=== PATIENT | male | born 1940 | race Caucasian/White ===

== ENCOUNTER → 2024-09-16 | Outpatient (CLI) | payer MEDICARE, BC, SELFPAY ==
[2024-09-16 16:59] LABS: Collection Type, Urine Clean Catch
[2024-09-16 17:43] LABS: Basophils % (Auto) 1 % (0-2.5); Eosinophils # (Auto) 0.3 Thou/mm3 (0.0-0.5); Eosinophils % (Auto) 4 % (0-10); Hematocrit 41.9 % (41.0-53.0); Hemoglobin 13.3 g/dL (13.5-16.0); Immature Granulocytes % (Auto) 0 % (0-0); Immature Granulocytes Auto 0.01 Thou/mm3 (0.00-0.00); Lymphocytes # (Auto) 1.8 Thou/mm3 (1.0-4.8); Lymphocytes % (Auto) 25 % (10-50); Mean Corpuscular HGB Conc 31.7 g/dl (31.0-37.0); Mean Corpuscular Hemoglobin 31.1 pg (25.0-35.0); Mean Corpuscular Volume 98 fL (80-100); Monocytes # (Auto) 0.7 Thou/mm3 (0.0-0.8); Monocytes % (Auto) 9 % (0-12); Neutrophils # (Auto) 4.4 Thou/mm3 (1.8-7.7); Neutrophils % (Auto) 61 % (37-80); Nucleated Red Blood Cell % 0 /100 WBC (0); Platelet Count 180 Thou/mm3 (140-440); RDW Standard Deviation 53.2 fL (35.1-43.9); Red Blood Count 4.28 Miln/mm3 (4.50-5.90); White Blood Count 7.2 Thou/mm3 (3.8-10.6)
[2024-09-16 17:49] LABS: Glucose Estimated Average 114 mg/dL (80-131); Hemoglobin A1C 5.6 % Hgb (4.8-6.0)
[2024-09-16 17:53] LABS: T4 (Thyroxine) 11.7 mcg/dL (4.5-10.9); Vitamin D 25 Hydroxy Total 63.6 ng/mL (7.3-40.2)
[2024-09-16 17:55] LABS: Bilirubin,Urine Negative (Negative); Blood,Urine Negative (Negative); Clarity,Urine Clear (Clear/Hazy); Color,Urine Colorless (Lt Yel-Yel); Culture Indicated,Urine Not Indicated; Glucose, Urine Negative (Negative); Ketones,Urine Negative (Negative); Leukocyte Esterase,Urine Positive (Negative); Nitrite,Urine Negative (Negative); Protein,Urine Negative (Neg - Trace); RBC,Urine 1 /hpf (0-3); Specific Gravity,Urine 1.009 (1.001-1.035); Squamous Epithelial Cell,Urine < 1 /hpf (0-5); Urobilinogen,Urine Negative mg/dL (0.0-1.0); WBC,Urine 5 /hpf (0-5)
[2024-09-16 17:56] LABS: Alanine Aminotransferase 57 U/L (10-49); Albumin, Serum 4.5 gm/dL (3.4-4.8); Albumin/Globulin Ratio 2.3 (1.2-2.2); Alkaline Phosphatase 80 U/L (46-116); Anion Gap 6 (7-16); Aspartate Amino Transferase 12 U/L (0-34); BUN/Creatinine Ratio 19 Ratio (12-20); Bilirubin,Total 0.4 mg/dL (0.3-1.2); Blood Urea Nitrogen 19 mg/dL (9-23); Calcium 9.8 mg/dL (8.3-10.6); Calcium (Corrected) 9.8 mg/dL (8.5-10.1); Cardiac Risk Estimate 3.2 RATIO (4.0-6.7); Chloride 101 mMol/L (98-107); Cholesterol 126 mg/dL (132-200); Glucose 131 mg/dL (74-106); HDL Cholesterol 40 mg/dL (40-60); LDL Cholesterol,Calculated 60 mg/dL (0-130); Osmolality,Calculated 285 (275-295); Potassium 4.3 mMol/L (3.4-5.1); Sodium 141 mMol/L (136-145); Thyroid Stimulating Hormone 0.17 uIU/mL (0.55-4.78); Total Protein 6.5 gm/dL (5.7-8.2); Triglycerides 130 mg/dL (30-150); eGFR > 60 See Note
== END | disposition home or self-care (01) ==
LOC: COPL 15:58
PROVIDERS: PCP Registered Nurse; Referring Provider Registered Nurse; Visit Provider Registered Nurse
DX: Z00.00 Encounter for general adult medical examination without abnormal findings (principal); G47.00 Insomnia, unspecified; E03.9 Hypothyroidism, unspecified; E78.2 Mixed hyperlipidemia; R73.03 Prediabetes; N40.1 Benign prostatic hyperplasia with lower urinary tract symptoms
CPT/HCPCS: 36415; 80053; 80061; 81001; 82306; 83036; 84153; 84436; 84443; 85025

== ENCOUNTER → 2025-01-16 | Outpatient (CLI) | payer MEDICARE, BC, SELFPAY ==
[2025-01-16 15:51] LABS: B-Type Natriuretic Peptide < 20 pg/mL (0-100)
[2025-01-16 15:52] LABS: Anion Gap 6 (7-16); BUN/Creatinine Ratio 15 Ratio (12-20); Blood Urea Nitrogen 16 mg/dL (9-23); Calcium 9.3 mg/dL (8.3-10.6); Carbon Dioxide 33.3 mMol/L (20.0-31.0); Chloride 104 mMol/L (98-107); Creatinine (Component) 1.1 mg/dL (0.6-1.3); Glucose 91 mg/dL (74-106); Osmolality,Calculated 286 (275-295); Potassium 4.7 mMol/L (3.4-5.1); Sodium 143 mMol/L (136-145); eGFR > 60 See Note
== END | disposition home or self-care (01) ==
LOC: COPL 14:50
PROVIDERS: PCP Registered Nurse; Referring Provider Registered Nurse; Visit Provider Registered Nurse
DX: R22.43 Localized swelling, mass and lump, lower limb, bilateral (principal)
CPT/HCPCS: 36415; 80048; 83880